=== PATIENT | female | born 1935 | race Caucasian/White ===

== ENCOUNTER 2018-05-22 13:01 | Outpatient (CLI) | payer MEDICARE, OTHER ==
--- NOTE | 2018-05-22 15:46 | MRI ---
MRI BRAIN WITH AND WITHOUT CONTRAST: HISTORY: Asymmetry sensorineural hearing loss. Weakness and dizziness. Left ear hearing loss x last year. COMPARISON: None. TECHNIQUE: Brain and internal auditory canal MRI performed with and without intravenous Gadolinium administratio n. Multisequential, multiplanar imaging is performed. Calvarium has a normal T1 marrow signal inten sity. Midline brain parenchymal structures are unremarkable. No parenchymal mass, mass effect, or midline shift. Age-appropriate atrophy. Cortical arellano-white ma tter differentiation is preserved. Ventricles and sulci are patent and symmetric. T2 and FLAIR white matter hyperintensities due to chronic small-vessel ischemic change. Central rufus rial flow voids are maintained. Absent restricted diffusion. Mild mucosal disease involving the paranasal sinuses. Adequate right mastoid air cell aeration. Min imal opacification of the left mastoid air cells. No pathologic enhancement of the brain parenchyma. MRI OF THE INTERNAL AUDITORY CANALS: There is symmetric signal intensity in the 5th, 7-8th cranial nerve complexes. Additionally, there i s symmetric signal intensity in bilateral inner structures. No abnormal enhancement in the cranial n erves or inner ear structures. IMPRESSION: 1. Unremarkable pre- and postcontrast MRI of the internal auditory canals. 2. Age-appropriate atrophy. 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 Absent restr icted diffusion. No acute infarct. 3. No pathologic enhancement of the brain parenchyma. POS: JESS
[2018-05-22] MEDS ORDERED: Gadobenate Dimeglumine 529 MG/1 ML (20ML VIAL) ONE (17:05)
== END 2018-05-22 13:02 | disposition home or self-care (01) ==
LOC: BICMRI 13:01
PROVIDERS: ATTEND Specialist
DX: H90.5 Unspecified sensorineural hearing loss (principal); G31.9 Degenerative disease of nervous system, unspecified; I67.82 Cerebral ischemia
CPT/HCPCS: 70553; 82565; A9579

== ENCOUNTER 2020-05-04 09:08 | Outpatient (CLI) | payer MEDICARE, OTHER ==
--- NOTE | 2020-05-04 09:51 | MMO ---
Bilateral MAMMO Bilat Screen [facility]. CLINICAL HISTORY: Patient is 85 years old and is seen for screening. The patient has no family history of breast cancer. The patient has no personal history of cancer. The patient has a history of left Excisional Biopsy in 1987 - benign. VIEWS: The views performed were: bilateral craniocaudal with tomosynthesis and bilateral mediolateral oblique with tomosynthesis. FILMS COMPARED: The present examination has been compared to prior imaging studies performed at [facility] on 05/03/2019, and at [facility] on 04/28/2017 and 04/29/2018. This study has been interpreted with the assistance of computer-aided detection. MAMMOGRAM FINDINGS: The breasts are almost entirely fat. There are stable benign appearing calcifications seen in both breasts. There are also vascular calcifications. There are no suspicious masses, suspicious calcifications, or new areas of architectural distortion. IMPRESSION: THERE IS NO MAMMOGRAPHIC EVIDENCE OF MALIGNANCY. A ROUTINE FOLLOW-UP MAMMOGRAM IN 1 YEAR IS RECOMMENDED. THE RESULTS OF THIS EXAM WERE SENT TO THE PATIENT. ACR BI-RADS Category 2 - Benign finding MAMMOGRAPHY NOTE: 1. A negative mammogram report should not delay a biopsy if a dominant of clinically suspicious mass is present. 2. Approximately 10% to 15% of breast cancers are not detected by mammography. 3. Adenosis and dense breasts may obscure an underlying neoplasm. Reported by: SUGEY WANG MD Electonically Signed: [id number]
== END 2020-05-04 09:09 | disposition home or self-care (01) ==
LOC: BICMAMMO 09:08
PROVIDERS: ATTEND Internal Medicine
DX: Z12.31 Encounter for screening mammogram for malignant neoplasm of breast (principal)
CPT/HCPCS: 77063; 77067

== ENCOUNTER 2021-05-07 09:37 | Outpatient (CLI) | payer MEDICARE, OTHER | END 2021-05-07 09:38 | disposition home or self-care (01) | LOC: BICMAMMO 09:37 | PROVIDERS: ATTEND Internal Medicine | DX: Z12.31 Encounter for screening mammogram for malignant neoplasm of breast (principal) | CPT/HCPCS: 77063; 77067 ==

== ENCOUNTER 2021-09-25 13:11 | Outpatient (CLI) | payer MEDICARE, OTHER | END 2021-09-25 13:12 | disposition home or self-care (01) | LOC: BICCT 13:11 | PROVIDERS: ATTEND Urology | DX: N28.89 Other specified disorders of kidney and ureter (principal) | CPT/HCPCS: 74170; 82565 ==

== ENCOUNTER 2022-04-09 12:19 | Outpatient (CLI) | payer MEDICARE, OTHER | END 2022-04-09 12:20 | disposition home or self-care (01) | LOC: BICCT 12:19 | PROVIDERS: ATTEND Urology | DX: N28.89 Other specified disorders of kidney and ureter (principal); N28.1 Cyst of kidney, acquired | CPT/HCPCS: 74170; 82565 ==

== ENCOUNTER 2022-05-22 08:47 | Outpatient (CLI) | payer MEDICARE, OTHER | END 2022-05-22 08:48 | disposition home or self-care (01) | LOC: BICMAMMO 08:47 | PROVIDERS: ATTEND Internal Medicine | DX: Z12.31 Encounter for screening mammogram for malignant neoplasm of breast (principal); R92.1 Mammographic calcification found on diagnostic imaging of breast; Z91.89 Other specified personal risk factors, not elsewhere classified | CPT/HCPCS: 77063; 77067 ==

== ENCOUNTER 2022-08-28 07:12 | Outpatient (CLI) | payer MEDICARE, OTHER ==
[2022-08-28] MEDS ORDERED: Iopamidol 370 76% 100 ML VIAL ONE (08:40)
== END 2022-08-28 07:13 | disposition home or self-care (01) ==
LOC: CT 07:12
PROVIDERS: ATTEND Urology
DX: N28.89 Other specified disorders of kidney and ureter (principal); R54 Age-related physical debility; N32.89 Other specified disorders of bladder; K57.90 Diverticulosis of intestine, part unspecified, without perforation or abscess without bleeding
CPT/HCPCS: 74178; 82565

== ENCOUNTER 2023-07-10 11:55 | Outpatient (CLI) | payer MEDICARE, OTHER | END 2023-07-10 11:56 | disposition home or self-care (01) | LOC: BICMAMMO 11:55 | PROVIDERS: ATTEND Internal Medicine | DX: Z12.31 Encounter for screening mammogram for malignant neoplasm of breast (principal); Z91.89 Other specified personal risk factors, not elsewhere classified | CPT/HCPCS: 77063; 77067 ==

== ENCOUNTER 2023-07-23 14:13 | Outpatient (CLI) | payer MEDICARE, OTHER | END 2023-07-23 14:14 | disposition home or self-care (01) | LOC: BICMAMMO 14:13 | PROVIDERS: ATTEND Internal Medicine | DX: M81.0 Age-related osteoporosis without current pathological fracture (principal); M85.851 Other specified disorders of bone density and structure, right thigh | CPT/HCPCS: 77080 ==

== ENCOUNTER 2024-02-10 09:47 | Outpatient (CLI) | payer MEDICARE, OTHER | END 2024-02-10 09:48 | disposition home or self-care (01) | LOC: BICULT 09:47 | PROVIDERS: ATTEND Urology | DX: N95.2 Postmenopausal atrophic vaginitis (principal); N28.89 Other specified disorders of kidney and ureter; R54 Age-related physical debility; R35.0 Frequency of micturition | CPT/HCPCS: 76770 ==

== ENCOUNTER 2024-07-01 08:26 | Outpatient (CLI) | payer MEDICARE, OTHER | END 2024-07-01 08:27 | disposition home or self-care (01) | LOC: CT 08:26 | PROVIDERS: ATTEND Urology | DX: N28.89 Other specified disorders of kidney and ureter (principal); K59.00 Constipation, unspecified; J98.11 Atelectasis; Q79.1 Other congenital malformations of diaphragm | CPT/HCPCS: 36415; 74170; 82565 ==